=== PATIENT | male | born 1980 | race Caucasian/White ===

== ENCOUNTER 2022-03-31 19:41 | Inpatient (IN) | payer MEDICAID ==
[~2022-03-31] VITALS: Ht 172.7 cm; Wt 124.4 kg
[~2022-03-31 19:41] MED LIST: ASPI-1497 PO; ATOR10TA69 PO; ETOMIDATE 2MG/ML 10ML VIAL IV ONE; LISI-186 PO; SODIUM CHLORIDE 0.9% 10ML VIAL ONE; VECURONIUM BROMIDE 10 MG/VIAL IV ONE
[2022-03-31] MEDS ORDERED: SUCCINYLCHOLINE CHLORIDE 200MG/10ML IV ONE (20:00)
[2022-03-31] MEDS ORDERED: MIDAZOLAM HCL 100 MG in DEXT 5% WATER 80 ML IV ONE (20:00)
[2022-03-31] MEDS ORDERED: MIDAZOLAM 100MG/100ML PMX 100 ML IV ONE (20:00)
[2022-03-31] MEDS ORDERED: ETOMIDATE 2MG/ML 10ML VIAL IV ONE (20:00)
[2022-03-31] MEDS ORDERED: VECURONIUM BROMIDE 10 MG/VIAL IV ONE (20:00)
[2022-03-31] MEDS ORDERED: SODIUM CHLORIDE 0.9% 1,000 ML IV ONE (20:00)
[2022-03-31] MEDS ORDERED: ETOMIDATE 2MG/ML 10ML VIAL IV NR (20:15)
[2022-03-31] MEDS ORDERED: MIDAZOLAM 100MG/100ML PMX 100 ML IV SCH (20:15)
[2022-03-31] MEDS ORDERED: VECURONIUM BROMIDE 10 MG/VIAL IV NR (20:15)
[2022-03-31] MEDS ORDERED: SUCCINYLCHOLINE CHLORIDE 200MG/10ML IV NR (20:15)
[2022-03-31 20:33] LABS: BASOPHILS % 0.3 % (0.0-2.0); EOSINOPHILS % 0.1 % (0.0-5.0); HEMATOCRIT. 40.8 % (42.0-52.0); HEMOGLOBIN. 12.6 g/dL (14.0-18.0); LYMPHOCYTES % 14.8 % (20.0-50.0); MEAN CORPUSCULAR HEMOGLOBIN 24.9 pg (28.0-32.0); MEAN CORPUSCULAR VOLUME 80.8 fL (80.0-94.0); MEAN PLATELET VOLUME 8.1 fl (7.4-10.4); MONOCYTES % 8.3 % (2.0-8.0); NEUTROPHILS % 76.5 % (40.0-76.0); PLATELET 358 x1000/uL (130-400); RED BLOOD CELL COUNT 5.05 mill/uL (4.7-6.1); RED CELL DISTRIBUTION WIDTH 15.6 % (11.6-14.6)
[2022-03-31 20:36] LABS: INR 1.2; PROTHROMBIN TIME 12.4 sec (9.6-11.0)
[2022-03-31] MEDS ORDERED: NICARDIPINE 40MG/200ML PREMIX 200 ML IV STA (20:42)
[2022-03-31] MEDS ORDERED: LABETALOL 5MG/ML SYR 20 MG/4 ML SYRINGE IV ONE (20:45)
[2022-03-31 20:49] LABS: BG BASE EXCESS -2.2 mmol/L (-2.0-2.0); BG CARBOXYHEMOGLOBIN 0.5 % (0.5-1.5); BG DEOXYHEMOGLOBIN 2.4 % (0.0-5.0); BG FRACTION INSPIRED OXYGEN 100; BG METHEMOGLOBIN 0.4 % (0.0-1.5); BG OXYGEN SATURATION 97.6 % (92.0-98.5); BG OXYHEMOGLOBIN 96.7 % (94.0-97.0); BG PCO2 68.6 mmHg (35.0-45.0); BG PH 7.213 (7.350-7.450); BG PO2 117.1 mmHg (75.0-100.0); BG TOTAL RESPIRATORY RATE 14 b/min; BG VENT MODE VENT - AC
[2022-03-31 20:51] LABS: CHLORIDE 97 mEq/L (98-107)
[2022-03-31 21:02] LABS: CREATINE KINASE 313 IU/L (39-308); ETHANOL BLOOD < 10 mg/dL; LDL CHOLESTEROL 119 mg/dL (5-100)
[2022-03-31 21:12] LABS: CLARITY URINE TURBID (CLEAR); COLOR URINE YELLOW (YELLOW); KETONES URINE NEGATIVE (NEGATIVE); LEUKOCYTE ESTERASE URINE NEGATIVE (NEGATIVE); NITRITE URINE NEGATIVE (NEGATIVE); OCCULT BLOOD URINE 2+ (NEGATIVE); PH URINE 6.5 (4.5-8.0); PROTEIN URINE 4+ (NEGATIVE); SPECIFIC GRAVITY URINE 1.042 (1.005-1.030)
[2022-03-31 21:30] LABS: *AMPHETAMINES SCREEN URINE NEGATIVE (NEGATIVE); *BARBITURATES SCREEN URINE NEGATIVE (NEGATIVE); *BENZODIAZEPINES SCREEN URINE NEGATIVE (NEGATIVE); *COCAINE SCREEN URINE NEGATIVE (NEGATIVE); CANNABINOID URINE SCREEN NEGATIVE (NEGATIVE); METHADONE URINE SCREEN NEGATIVE (NEGATIVE); OPIATES URINE SCREEN NEGATIVE (NEGATIVE); PHENCYCLIDINE URINE SCREEN NEGATIVE (NEGATIVE)
[2022-03-31] MEDS ORDERED: IPRATROPIUM/ALBUTEROL 0.5-3(2.5)MG/3ML NEB HHN PRN ×2 (22:15→23:45)
[2022-03-31] MEDS ORDERED: MIDAZOLAM 100MG/100ML PMX 100 ML IV PRN (22:15)
[2022-03-31] MEDS ORDERED: PIPERACILLIN/TAZ 3.375G PREMIX 50 ML IV ONE (22:30)
[2022-03-31] MEDS ORDERED: LEVOFLOXACIN 500MG PREMIX 100 ML IV ONE (22:30)
[2022-03-31] MEDS ORDERED: MORPHINE SULFATE 10 MG/ML CPJ IV ONE (22:45)
[2022-03-31 22:46] LABS: BG CARBOXYHEMOGLOBIN 0.4 % (0.5-1.5); BG DEOXYHEMOGLOBIN 5.2 % (0.0-5.0); BG HCO3 ACT 28.4 mmol/L (22.0-26.0); BG METHEMOGLOBIN 0.3 % (0.0-1.5); BG OXYGEN SATURATION 94.8 % (92.0-98.5); BG OXYHEMOGLOBIN 94.1 % (94.0-97.0); BG PCO2 52.3 mmHg (35.0-45.0); BG PH 7.353 (7.350-7.450); BG PO2 78.3 mmHg (75.0-100.0); BG SAMPLE SITE RIGHT RADIAL; BG TOTAL HEMOGLOBIN 12.8 g/dL (12.0-18.0); BG TOTAL RESPIRATORY RATE 22 b/min; BG VENT MODE VENT - AC
[2022-03-31] MEDS: FENTANYL 2500MCG/250ML PMX 250 ML IV PRN (22:50)
[2022-03-31] MEDS ORDERED: ONDANSETRON HCL 4MG/2ML INJ IV PRN (23:45)
[2022-04-01] VITALS (31 sets, daily range): BP systolic 137–178; BP diastolic 58–135
[2022-04-01] MEDS: PANTOPRAZOLE SODIUM 40 MG/VIAL IV SCH ×2 (01:02→09:00)
[2022-04-01] MEDS: IPRATROPIUM/ALBUTEROL 0.5-3(2.5)MG/3ML NEB HHN SCH ×4 (01:09→20:37)
[2022-04-01] MEDS ORDERED: DEXTROSE 50% WATER 50ML SYRINGE IV PRN (04:30)
[2022-04-01] MEDS: HYDRALAZINE 20MG/ML VIAL IV PRN (04:54)
[2022-04-01] MEDS: BLOOD SUGAR DIAGNOSTIC STRIP TEST SCH ×3 (05:07→17:52)
[2022-04-01] MEDS: INSULIN LISPRO 100 UNITS/ML SUBCUT SCH ×3 (05:07→17:52)
[2022-04-01 06:00] LABS: BASOPHILS % 0.1 % (0.0-2.0); EOSINOPHILS % 0.2 % (0.0-5.0); HEMATOCRIT. 36.6 % (42.0-52.0); HEMOGLOBIN. 11.6 g/dL (14.0-18.0); LYMPHOCYTES % 10.4 % (20.0-50.0); MEAN CORPUSCULAR HEMOGLOBIN 24.8 pg (28.0-32.0); MEAN CORPUSCULAR VOLUME 78.4 fL (80.0-94.0); MEAN PLATELET VOLUME 7.9 fl (7.4-10.4); NEUTROPHILS % 78.3 % (40.0-76.0); PLATELET 311 x1000/uL (130-400); RED BLOOD CELL COUNT 4.67 mill/uL (4.7-6.1); RED CELL DISTRIBUTION WIDTH 15.1 % (11.6-14.6)
[2022-04-01] MEDS: MIDAZOLAM 100MG/100ML PMX 100 ML IV PRN (06:07)
[2022-04-01 06:11] LABS: CHLORIDE 100 mEq/L (98-107)
[2022-04-01 06:29] LABS: CREATINE KINASE 297 IU/L (39-308); HDL CHOLESTEROL 37 mg/dL (40-59); LDL CHOLESTEROL 105 mg/dL (5-100)
[2022-04-01] MEDS ORDERED: INSULIN LISPRO 100 UNITS/ML SUBCUT SCH (07:00)
[2022-04-01] MEDS ORDERED: LIDOCAINE HCL/PF 1% 10 MG/ML 5ML VIAL ONE (08:06)
[2022-04-01] MEDS ORDERED: FUROSEMIDE 40MG/4ML VIAL IV SCH (09:00)
[2022-04-01 09:02] LABS: BG BASE EXCESS 3.2 mmol/L (-2.0-2.0); BG CARBOXYHEMOGLOBIN 0.7 % (0.5-1.5); BG DEOXYHEMOGLOBIN 0.8 % (0.0-5.0); BG FRACTION INSPIRED OXYGEN 100; BG HCO3 ACT 29.1 mmol/L (22.0-26.0); BG METHEMOGLOBIN 0.3 % (0.0-1.5); BG OXYGEN SATURATION 99.2 % (92.0-98.5); BG OXYHEMOGLOBIN 98.2 % (94.0-97.0); BG PCO2 49.6 mmHg (35.0-45.0); BG PH 7.386 (7.350-7.450); BG PO2 157.4 mmHg (75.0-100.0); BG SAMPLE SITE RIGHT RADIAL; BG TOTAL HEMOGLOBIN 12.4 g/dL (12.0-18.0); BG VENT MODE VENT - AC
[2022-04-01] MEDS ORDERED: POTASSIUM CHLORIDE 20MEQ TABLET SR PO NR (10:21)
[2022-04-01] MEDS: ENOXAPARIN 120MG/0.8ML SYR SUBCUT SCH ×2 (10:28→21:25)
[2022-04-01] MEDS: ASPIRIN 81MG TABLET PO SCH (10:30)
[2022-04-01] MEDS: AMLODIPINE 5MG TABLET PO SCH (10:45)
[2022-04-01] MEDS ORDERED: LOSARTAN POTASSIUM 25 MG TABLET PO SCH (11:30)
[2022-04-01] MEDS: FUROSEMIDE 40MG/4ML VIAL IV SCH ×2 (13:00→17:52)
[2022-04-01 17:57] LABS: CREATINE KINASE MB FRACTION 11.1 ng/mL (0.5-3.6)
[2022-04-01] MEDS: FENTANYL 2500MCG/250ML PMX 250 ML IV PRN (21:16)
[2022-04-01] MEDS: CARVEDILOL 3.125 MG TABLET PO SCH (21:25)
[2022-04-02] VITALS (53 sets, daily range): BP systolic 126–175; BP diastolic 76–110
[2022-04-02] MEDS: BLOOD SUGAR DIAGNOSTIC STRIP TEST SCH ×4 (00:12→17:37)
[2022-04-02] MEDS: IPRATROPIUM/ALBUTEROL 0.5-3(2.5)MG/3ML NEB HHN SCH ×4 (01:56→20:59)
[2022-04-02 05:50] LABS: HEMOGLOBIN. 11.4 g/dL (14.0-18.0); MEAN CORPUSCULAR HEMOGLOBIN 24.6 pg (28.0-32.0); MEAN CORPUSCULAR VOLUME 77.9 fL (80.0-94.0); MEAN PLATELET VOLUME 8.1 fl (7.4-10.4); PLATELET 285 x1000/uL (130-400); RED BLOOD CELL COUNT 4.61 mill/uL (4.7-6.1); RED CELL DISTRIBUTION WIDTH 15.5 % (11.6-14.6)
[2022-04-02] MEDS: INSULIN LISPRO 100 UNITS/ML SUBCUT SCH ×4 (06:00→17:37)
[2022-04-02 07:48] LABS: BG CARBOXYHEMOGLOBIN 0.3 % (0.5-1.5); BG HCO3 ACT 28.7 mmol/L (22.0-26.0); BG OXYHEMOGLOBIN 92.7 % (94.0-97.0); BG PCO2 43.4 mmHg (35.0-45.0); BG PH 7.438 (7.350-7.450); BG PO2 67.6 mmHg (75.0-100.0); BG SAMPLE SITE RIGHT RADIAL; BG TOTAL HEMOGLOBIN 12.6 g/dL (12.0-18.0); BG VENT MODE VENT - AC
[2022-04-02] MEDS: ASPIRIN 81MG TABLET PO SCH (08:57)
[2022-04-02] MEDS: ACETAMINOPHEN 650MG/20.3ML UDC PO PRN (08:57)
[2022-04-02] MEDS: CARVEDILOL 3.125 MG TABLET PO SCH ×2 (08:57→21:29)
[2022-04-02] MEDS: ENOXAPARIN 120MG/0.8ML SYR SUBCUT SCH ×2 (08:57→21:29)
[2022-04-02] MEDS: FUROSEMIDE 40MG/4ML VIAL IV SCH ×3 (08:57→17:37)
[2022-04-02] MEDS: PANTOPRAZOLE SODIUM 40 MG/VIAL IV SCH (08:57)
[2022-04-02] MEDS: AMLODIPINE 5MG TABLET PO SCH (08:58)
[2022-04-02] MEDS ORDERED: NICARDIPINE 50 MG in SODIUM CHLORIDE 0.9% 230 ML IV PRN (09:15)
[2022-04-02] MEDS ORDERED: POTASSIUM CHLORIDE 20MEQ/PACKET PO NR (09:30)
[2022-04-02] MEDS ORDERED: VANCOMYCIN 2,000 MG in DEXT 5% WATER 500 ML IV NR (10:30)
[2022-04-02 12:48] LABS: PLATELET ESTIMATE NORMAL
[2022-04-02] MEDS: PIPERACILLIN/TAZOBACTAM 3.375 G in DEXTROSE 5% WATER 50 ML IV SCH ×3 (13:07→21:57)
[2022-04-02] MEDS: HYDRALAZINE HCL 25MG TABLET PO SCH ×2 (13:14→21:57)
[2022-04-02] MEDS: MIDAZOLAM 100MG/100ML PMX 100 ML IV PRN (15:36)
[2022-04-02] MEDS: FENTANYL 2500MCG/250ML PMX 250 ML IV PRN (22:04)
[2022-04-03] VITALS (79 sets, daily range): BP systolic 127–181; BP diastolic 64–111
[2022-04-03] MEDS: IPRATROPIUM/ALBUTEROL 0.5-3(2.5)MG/3ML NEB HHN SCH ×3 (00:43→12:35)
[2022-04-03 05:42] LABS: BASOPHILS % 0.3 % (0.0-2.0); EOSINOPHILS % 0.5 % (0.0-5.0); HEMATOCRIT. 36.8 % (42.0-52.0); HEMOGLOBIN. 11.6 g/dL (14.0-18.0); LYMPHOCYTES % 8.9 % (20.0-50.0); MEAN CORPUSCULAR HEMOGLOBIN 24.9 pg (28.0-32.0); MEAN CORPUSCULAR VOLUME 79.2 fL (80.0-94.0); MEAN PLATELET VOLUME 8.2 fl (7.4-10.4); MONOCYTES % 10.2 % (2.0-8.0); NEUTROPHILS % 80.1 % (40.0-76.0); PLATELET 276 x1000/uL (130-400); RED BLOOD CELL COUNT 4.65 mill/uL (4.7-6.1); RED CELL DISTRIBUTION WIDTH 15.5 % (11.6-14.6)
[2022-04-03] MEDS: INSULIN LISPRO 100 UNITS/ML SUBCUT SCH ×4 (06:00→18:00)
[2022-04-03] MEDS: BLOOD SUGAR DIAGNOSTIC STRIP TEST SCH ×4 (06:13→18:35)
[2022-04-03] MEDS: PIPERACILLIN/TAZOBACTAM 3.375 G in DEXTROSE 5% WATER 50 ML IV SCH ×3 (06:14→21:39)
[2022-04-03] MEDS: HYDRALAZINE HCL 25MG TABLET PO SCH ×3 (06:14→21:40)
[2022-04-03] MEDS: VANCOMYCIN 1.25GM PMX (XELLIA) 250 ML IV SCH (06:14)
[2022-04-03 06:15] LABS: PHOSPHORUS 3.6 mg/dL (2.5-4.9)
[2022-04-03 08:00] LABS: BG FRACTION INSPIRED OXYGEN 50; BG HCO3 ACT 35.1 mmol/L (22.0-26.0); BG METHEMOGLOBIN 0.3 % (0.0-1.5); BG OXYGEN SATURATION 94.9 % (92.0-98.5); BG OXYHEMOGLOBIN 93.7 % (94.0-97.0); BG PCO2 49.3 mmHg (35.0-45.0); BG PO2 70.3 mmHg (75.0-100.0); BG SAMPLE SITE RIGHT RADIAL; BG TOTAL HEMOGLOBIN 12.5 g/dL (12.0-18.0); BG VENT MODE VENT - AC
[2022-04-03] MEDS: FUROSEMIDE 40MG/4ML VIAL IV SCH ×3 (08:14→16:29)
[2022-04-03] MEDS: PANTOPRAZOLE SODIUM 40 MG/VIAL IV SCH (08:15)
[2022-04-03] MEDS: ACETAMINOPHEN 650MG/20.3ML UDC PO PRN ×2 (08:15→16:28)
[2022-04-03] MEDS: POTASSIUM CHLORIDE 20MEQ/PACKET PO SCH (08:16)
[2022-04-03] MEDS: HYDRALAZINE 20MG/ML VIAL IV PRN (08:16)
[2022-04-03] MEDS: ASPIRIN 81MG TABLET PO SCH (08:16)
[2022-04-03] MEDS: CARVEDILOL 3.125 MG TABLET PO SCH (08:17)
[2022-04-03] MEDS: AMLODIPINE 5MG TABLET PO SCH ×2 (08:17→20:52)
[2022-04-03] MEDS: ENOXAPARIN 120MG/0.8ML SYR SUBCUT SCH ×2 (08:19→20:53)
[2022-04-03] MEDS: DOXAZOSIN MESYLATE 2MG TABLET PO SCH ×2 (09:10→16:29)
[2022-04-03] MEDS: DOCUSATE SODIUM SUGAR FREE 100MG/10ML UDC NG SCH (09:10)
[2022-04-03] MEDS: MIDAZOLAM 100MG/100ML PMX 100 ML IV PRN (18:36)
[2022-04-03] MEDS: CARVEDILOL 6.25 MG TABLET PO SCH (20:52)
[2022-04-03] MEDS: FENTANYL 2500MCG/250ML PMX 250 ML IV PRN (21:55)
[2022-04-04] VITALS (84 sets, daily range): BP systolic 100–181; BP diastolic 57–105
[2022-04-04] MEDS: BLOOD SUGAR DIAGNOSTIC STRIP TEST SCH ×5 (00:42→23:55)
[2022-04-04] MEDS: VANCOMYCIN 1.25GM PMX (XELLIA) 250 ML IV SCH (00:42)
[2022-04-04] MEDS: ACETAMINOPHEN 650MG/20.3ML UDC PO PRN ×2 (00:42→08:25)
[2022-04-04] MEDS: IPRATROPIUM/ALBUTEROL 0.5-3(2.5)MG/3ML NEB HHN SCH ×4 (00:48→20:22)
[2022-04-04 05:46] LABS: BASOPHILS % 0.2 % (0.0-2.0); EOSINOPHILS % 0.3 % (0.0-5.0); HEMATOCRIT. 36.3 % (42.0-52.0); HEMOGLOBIN. 11.5 g/dL (14.0-18.0); LYMPHOCYTES % 10.1 % (20.0-50.0); MEAN CORPUSCULAR HEMOGLOBIN 24.7 pg (28.0-32.0); MEAN CORPUSCULAR VOLUME 77.9 fL (80.0-94.0); MEAN PLATELET VOLUME 8.3 fl (7.4-10.4); MONOCYTES % 13.4 % (2.0-8.0); PLATELET 295 x1000/uL (130-400); RED BLOOD CELL COUNT 4.66 mill/uL (4.7-6.1); RED CELL DISTRIBUTION WIDTH 15.9 % (11.6-14.6)
[2022-04-04] MEDS: INSULIN LISPRO 100 UNITS/ML SUBCUT SCH ×5 (06:00→23:56)
[2022-04-04 06:09] LABS: PHOSPHORUS 3.2 mg/dL (2.5-4.9)
[2022-04-04] MEDS: HYDRALAZINE HCL 25MG TABLET PO SCH ×2 (06:51→13:36)
[2022-04-04] MEDS: PIPERACILLIN/TAZOBACTAM 3.375 G in DEXTROSE 5% WATER 50 ML IV SCH ×3 (06:51→21:34)
[2022-04-04 08:05] LABS: BG BASE EXCESS 7.7 mmol/L (-2.0-2.0); BG CARBOXYHEMOGLOBIN 1.6 % (0.5-1.5); BG DEOXYHEMOGLOBIN 3.9 % (0.0-5.0); BG HCO3 ACT 32.4 mmol/L (22.0-26.0); BG METHEMOGLOBIN 0.5 % (0.0-1.5); BG PCO2 45.8 mmHg (35.0-45.0); BG PH 7.468 (7.350-7.450); BG PO2 81.6 mmHg (75.0-100.0); BG SAMPLE SITE RIGHT RADIAL; BG VENT MODE VENT - AC
[2022-04-04] MEDS: PANTOPRAZOLE SODIUM 40 MG/VIAL IV SCH (08:26)
[2022-04-04] MEDS: DOCUSATE SODIUM SUGAR FREE 100MG/10ML UDC NG SCH (08:26)
[2022-04-04] MEDS: ENOXAPARIN 120MG/0.8ML SYR SUBCUT SCH (08:26)
[2022-04-04] MEDS: POTASSIUM CHLORIDE 20MEQ/PACKET PO SCH (08:26)
[2022-04-04] MEDS: ASPIRIN 81MG TABLET PO SCH (08:27)
[2022-04-04] MEDS: FUROSEMIDE 40MG/4ML VIAL IV SCH (08:27)
[2022-04-04] MEDS: AMLODIPINE 5MG TABLET PO SCH ×2 (08:27→21:43)
[2022-04-04] MEDS: HYDRALAZINE 20MG/ML VIAL IV PRN (08:27)
[2022-04-04] MEDS: CARVEDILOL 6.25 MG TABLET PO SCH ×2 (08:28→21:00)
[2022-04-04] MEDS: DOXAZOSIN MESYLATE 2MG TABLET PO SCH ×2 (08:28→18:18)
[2022-04-04] MEDS ORDERED: ENOXAPARIN 30MG/0.3ML SYR SUBCUT SCH (10:30)
[2022-04-04] MEDS ORDERED: KCL 20MEQ/100ML PREMIX 100 ML IV NR (11:00)
[2022-04-04] MEDS: MIDAZOLAM HCL 100 MG in SODIUM CHLORIDE 0.9% 100 ML IV PRN (18:21)
[2022-04-04] MEDS: FENTANYL 2500MCG/250ML PMX 250 ML IV PRN (20:45)
[2022-04-04] MEDS: HYDRALAZINE HCL 50MG TABLET PO SCH (21:33)
[2022-04-04] MEDS: ENOXAPARIN 30MG/0.3ML SYR SUBCUT SCH (21:35)
[2022-04-05] VITALS (93 sets, daily range): BP systolic 110–156; BP diastolic 62–99
[2022-04-05] MEDS: IPRATROPIUM/ALBUTEROL 0.5-3(2.5)MG/3ML NEB HHN SCH ×4 (01:49→20:41)
[2022-04-05 05:34] LABS: BASOPHILS % 0.2 % (0.0-2.0); EOSINOPHILS % 4.2 % (0.0-5.0); HEMATOCRIT. 36.3 % (42.0-52.0); HEMOGLOBIN. 11.4 g/dL (14.0-18.0); LYMPHOCYTES % 13.7 % (20.0-50.0); MEAN CORPUSCULAR HEMOGLOBIN 24.8 pg (28.0-32.0); MEAN CORPUSCULAR VOLUME 78.7 fL (80.0-94.0); MEAN PLATELET VOLUME 8.3 fl (7.4-10.4); MONOCYTES % 9.6 % (2.0-8.0); NEUTROPHILS % 72.3 % (40.0-76.0); PLATELET 286 x1000/uL (130-400); RED BLOOD CELL COUNT 4.61 mill/uL (4.7-6.1); RED CELL DISTRIBUTION WIDTH 15.4 % (11.6-14.6)
[2022-04-05] MEDS: INSULIN LISPRO 100 UNITS/ML SUBCUT SCH ×3 (06:00→18:00)
[2022-04-05] MEDS: BLOOD SUGAR DIAGNOSTIC STRIP TEST SCH ×3 (06:00→18:31)
[2022-04-05] MEDS: PIPERACILLIN/TAZOBACTAM 3.375 G in DEXTROSE 5% WATER 50 ML IV SCH ×3 (06:02→21:47)
[2022-04-05] MEDS: HYDRALAZINE HCL 50MG TABLET PO SCH ×3 (06:02→22:19)
[2022-04-05 08:30] LABS: BG BASE EXCESS 6.4 mmol/L (-2.0-2.0); BG CARBOXYHEMOGLOBIN 0.5 % (0.5-1.5); BG HCO3 ACT 30.9 mmol/L (22.0-26.0); BG METHEMOGLOBIN 0.3 % (0.0-1.5); BG OXYHEMOGLOBIN 93.2 % (94.0-97.0); BG PCO2 43.8 mmHg (35.0-45.0); BG PH 7.467 (7.350-7.450); BG PO2 66.7 mmHg (75.0-100.0); BG SAMPLE SITE RIGHT RADIAL; BG VENT MODE VENT - AC
[2022-04-05] MEDS: PANTOPRAZOLE SODIUM 40 MG/VIAL IV SCH (08:35)
[2022-04-05] MEDS: DOCUSATE SODIUM SUGAR FREE 100MG/10ML UDC NG SCH (08:36)
[2022-04-05] MEDS: AMLODIPINE 5MG TABLET PO SCH ×2 (08:36→21:44)
[2022-04-05] MEDS: ASPIRIN 81MG TABLET PO SCH (08:36)
[2022-04-05] MEDS: DOXAZOSIN MESYLATE 2MG TABLET PO SCH ×2 (08:37→18:31)
[2022-04-05] MEDS: CARVEDILOL 6.25 MG TABLET PO SCH ×2 (08:37→21:45)
[2022-04-05] MEDS: ENOXAPARIN 30MG/0.3ML SYR SUBCUT SCH ×2 (08:38→21:45)
[2022-04-05] MEDS: ACETAMINOPHEN 650MG/20.3ML UDC PO PRN ×3 (08:47→23:53)
[2022-04-05] MEDS ORDERED: FUROSEMIDE 40MG/4ML VIAL IV SCH (09:00)
[2022-04-05] MEDS: MIDAZOLAM HCL 100 MG in SODIUM CHLORIDE 0.9% 100 ML IV PRN (11:45)
[2022-04-05] MEDS ORDERED: VANCOMYCIN 1.25GM PMX (XELLIA) 250 ML IV SCH (12:00)
[2022-04-05] MEDS ORDERED: POTASSIUM CHLORIDE 20MEQ/PACKET NG SCH (12:00)
[2022-04-05] MEDS: FENTANYL 2500MCG/250ML PMX 250 ML IV PRN (18:32)
[2022-04-06] VITALS (92 sets, daily range): BP systolic 111–166; BP diastolic 55–103
[2022-04-06] MEDS: BLOOD SUGAR DIAGNOSTIC STRIP TEST SCH ×4 (00:53→17:10)
[2022-04-06] MEDS: IPRATROPIUM/ALBUTEROL 0.5-3(2.5)MG/3ML NEB HHN SCH ×4 (01:44→20:13)
[2022-04-06] MEDS ORDERED: FENTANYL CITRATE/PF 2,500 MCG in SODIUM CHLORIDE 0.9% 200 ML IV PRN (03:45)
[2022-04-06] MEDS: MIDAZOLAM HCL 100 MG in SODIUM CHLORIDE 0.9% 100 ML IV PRN ×3 (04:15→22:56)
[2022-04-06] MEDS: FENTANYL 2500MCG/250ML PMX 250 ML IV PRN ×2 (04:42→23:00)
[2022-04-06] MEDS: PIPERACILLIN/TAZOBACTAM 3.375 G in DEXTROSE 5% WATER 50 ML IV SCH ×3 (05:30→21:58)
[2022-04-06] MEDS: HYDRALAZINE HCL 50MG TABLET PO SCH ×3 (05:50→21:58)
[2022-04-06 05:52] LABS: BASOPHILS % 0.3 % (0.0-2.0); EOSINOPHILS % 7.2 % (0.0-5.0); HEMATOCRIT. 36.4 % (42.0-52.0); HEMOGLOBIN. 11.2 g/dL (14.0-18.0); LYMPHOCYTES % 13.3 % (20.0-50.0); MEAN CORPUSCULAR HEMOGLOBIN 24.6 pg (28.0-32.0); MEAN PLATELET VOLUME 8.7 fl (7.4-10.4); MONOCYTES % 6.2 % (2.0-8.0); PLATELET 269 x1000/uL (130-400); RED BLOOD CELL COUNT 4.55 mill/uL (4.7-6.1); RED CELL DISTRIBUTION WIDTH 15.9 % (11.6-14.6)
[2022-04-06] MEDS ORDERED: VANCOMYCIN 1G PREMIX 200 ML IV SCH ×2 (06:00→12:00)
[2022-04-06] MEDS: INSULIN LISPRO 100 UNITS/ML SUBCUT SCH ×4 (06:00→17:11)
[2022-04-06] MEDS ORDERED: POTASSIUM CHLORIDE 20MEQ TABLET SR PO NR (08:00)
[2022-04-06] MEDS: DOCUSATE SODIUM SUGAR FREE 100MG/10ML UDC NG SCH (08:17)
[2022-04-06] MEDS: PANTOPRAZOLE SODIUM 40 MG/VIAL IV SCH (08:17)
[2022-04-06] MEDS: DOXAZOSIN MESYLATE 2MG TABLET PO SCH ×2 (08:18→16:30)
[2022-04-06] MEDS: ASPIRIN 81MG TABLET PO SCH (08:18)
[2022-04-06] MEDS: AMLODIPINE 5MG TABLET PO SCH ×2 (08:18→21:57)
[2022-04-06] MEDS: CARVEDILOL 6.25 MG TABLET PO SCH ×2 (08:18→21:57)
[2022-04-06] MEDS: ENOXAPARIN 30MG/0.3ML SYR SUBCUT SCH ×2 (08:18→21:58)
[2022-04-06] MEDS: ACETAMINOPHEN 650MG/20.3ML UDC PO PRN ×2 (08:20→17:11)
[2022-04-06 08:59] LABS: BG BASE EXCESS 8.1 mmol/L (-2.0-2.0); BG CARBOXYHEMOGLOBIN 0.7 % (0.5-1.5); BG DEOXYHEMOGLOBIN 5.8 % (0.0-5.0); BG FRACTION INSPIRED OXYGEN 40; BG HCO3 ACT 32.9 mmol/L (22.0-26.0); BG METHEMOGLOBIN 0.2 % (0.0-1.5); BG OXYGEN SATURATION 94.1 % (92.0-98.5); BG OXYHEMOGLOBIN 93.3 % (94.0-97.0); BG PCO2 46.3 mmHg (35.0-45.0); BG PH 7.469 (7.350-7.450); BG PO2 69.2 mmHg (75.0-100.0); BG SAMPLE SITE RIGHT RADIAL; BG TOTAL HEMOGLOBIN 12.4 g/dL (12.0-18.0); BG VENT MODE VENT - AC
[2022-04-06] MEDS ORDERED: LORAZEPAM 2MG/ML CPJ IV PRN (10:15)
[2022-04-06 10:21] LABS: BG BASE EXCESS 4.9 mmol/L (-2.0-2.0); BG CARBOXYHEMOGLOBIN 0.8 % (0.5-1.5); BG DEOXYHEMOGLOBIN 3.1 % (0.0-5.0); BG FRACTION INSPIRED OXYGEN 40; BG HCO3 ACT 30.9 mmol/L (22.0-26.0); BG METHEMOGLOBIN 0.3 % (0.0-1.5); BG OXYGEN SATURATION 96.9 % (92.0-98.5); BG OXYHEMOGLOBIN 95.8 % (94.0-97.0); BG PCO2 51.7 mmHg (35.0-45.0); BG PH 7.394 (7.350-7.450); BG PO2 93.5 mmHg (75.0-100.0); BG SAMPLE SITE RIGHT RADIAL; BG TOTAL HEMOGLOBIN 12.4 g/dL (12.0-18.0); BG VENT MODE VENT - CPAP
[2022-04-06] MEDS ORDERED: VANCOMYCIN 1GM PMX (XELLIA) 200 ML IV SCH (12:00)
[2022-04-06 20:33] LABS: CREATINE KINASE 430 IU/L (39-308)
[2022-04-07] VITALS (66 sets, daily range): BP systolic 109–138; BP diastolic 56–90
[2022-04-07] MEDS: IPRATROPIUM/ALBUTEROL 0.5-3(2.5)MG/3ML NEB HHN SCH ×4 (02:04→20:25)
[2022-04-07 05:46] LABS: BASOPHILS % 0.2 % (0.0-2.0); EOSINOPHILS % 7.4 % (0.0-5.0); HEMATOCRIT. 34.7 % (42.0-52.0); HEMOGLOBIN. 10.8 g/dL (14.0-18.0); LYMPHOCYTES % 13.6 % (20.0-50.0); MEAN CORPUSCULAR VOLUME 80.2 fL (80.0-94.0); MEAN PLATELET VOLUME 8.8 fl (7.4-10.4); MONOCYTES % 8.4 % (2.0-8.0); NEUTROPHILS % 70.4 % (40.0-76.0); PLATELET 268 x1000/uL (130-400); RED BLOOD CELL COUNT 4.33 mill/uL (4.7-6.1)
[2022-04-07] MEDS: INSULIN LISPRO 100 UNITS/ML SUBCUT SCH ×4 (06:00→17:04)
[2022-04-07 06:02] LABS: CHLORIDE 116 mEq/L (98-107)
[2022-04-07] MEDS: BLOOD SUGAR DIAGNOSTIC STRIP TEST SCH ×4 (06:19→17:03)
[2022-04-07] MEDS: HYDRALAZINE HCL 50MG TABLET PO SCH ×3 (06:20→21:31)
[2022-04-07] MEDS: ACETAMINOPHEN 650MG/20.3ML UDC PO PRN (06:20)
[2022-04-07] MEDS: MIDAZOLAM HCL 100 MG in SODIUM CHLORIDE 0.9% 100 ML IV PRN (07:35)
[2022-04-07 07:46] LABS: BG BASE EXCESS 3.9 mmol/L (-2.0-2.0); BG CARBOXYHEMOGLOBIN 0.7 % (0.5-1.5); BG DEOXYHEMOGLOBIN 5.5 % (0.0-5.0); BG HCO3 ACT 29.7 mmol/L (22.0-26.0); BG METHEMOGLOBIN 0.2 % (0.0-1.5); BG OXYGEN SATURATION 94.5 % (92.0-98.5); BG OXYHEMOGLOBIN 93.6 % (94.0-97.0); BG PCO2 50.2 mmHg (35.0-45.0); BG SAMPLE SITE RIGHT RADIAL; BG TOTAL HEMOGLOBIN 12.1 g/dL (12.0-18.0); BG VENT MODE VENT - SIMV
[2022-04-07] MEDS: DOCUSATE SODIUM SUGAR FREE 100MG/10ML UDC NG SCH (09:00)
[2022-04-07] MEDS: ENOXAPARIN 30MG/0.3ML SYR SUBCUT SCH ×2 (09:06→21:33)
[2022-04-07] MEDS: AMLODIPINE 5MG TABLET PO SCH ×2 (09:06→21:31)
[2022-04-07] MEDS: PANTOPRAZOLE SODIUM 40 MG/VIAL IV SCH (09:06)
[2022-04-07] MEDS: CARVEDILOL 6.25 MG TABLET PO SCH ×2 (09:07→21:32)
[2022-04-07] MEDS: ASPIRIN 81MG TABLET PO SCH (09:07)
[2022-04-07] MEDS: DOXAZOSIN MESYLATE 2MG TABLET PO SCH ×2 (09:07→16:53)
[2022-04-07 11:28] LABS: BG BASE EXCESS 6.5 mmol/L (-2.0-2.0); BG FRACTION INSPIRED OXYGEN 40; BG HCO3 ACT 32.7 mmol/L (22.0-26.0); BG METHEMOGLOBIN 0.2 % (0.0-1.5); BG OXYGEN SATURATION 93.9 % (92.0-98.5); BG OXYHEMOGLOBIN 92.8 % (94.0-97.0); BG PCO2 53.7 mmHg (35.0-45.0); BG PH 7.402 (7.350-7.450); BG PO2 70.3 mmHg (75.0-100.0); BG SAMPLE SITE RIGHT RADIAL; BG TOTAL HEMOGLOBIN 12.9 g/dL (12.0-18.0); BG VENT MODE VENT - CPAP
[2022-04-07] MEDS: MEROPENEM 1,000 MG in SODIUM CHLORIDE 0.9% 100 ML IV SCH (22:08)
[2022-04-08] VITALS (54 sets, daily range): BP systolic 109–163; BP diastolic 52–97
[2022-04-08] MEDS: IPRATROPIUM/ALBUTEROL 0.5-3(2.5)MG/3ML NEB HHN SCH ×4 (00:23→20:08)
[2022-04-08] MEDS: FENTANYL 2500MCG/250ML PMX 250 ML IV PRN (02:36)
[2022-04-08] MEDS: MIDAZOLAM 100MG/100ML PREMIX IV PRN ×3 (02:41→15:57)
[2022-04-08] MEDS: MEROPENEM 1,000 MG in SODIUM CHLORIDE 0.9% 100 ML IV SCH ×3 (05:01→21:14)
[2022-04-08] MEDS: HYDRALAZINE HCL 50MG TABLET PO SCH ×3 (05:02→21:14)
[2022-04-08] MEDS: INSULIN LISPRO 100 UNITS/ML SUBCUT SCH ×4 (05:29→18:00)
[2022-04-08] MEDS: BLOOD SUGAR DIAGNOSTIC STRIP TEST SCH ×4 (05:30→18:32)
[2022-04-08 05:49] LABS: BASOPHILS % 0.3 % (0.0-2.0); EOSINOPHILS % 3.7 % (0.0-5.0); HEMATOCRIT. 35.5 % (42.0-52.0); HEMOGLOBIN. 10.8 g/dL (14.0-18.0); LYMPHOCYTES % 12.7 % (20.0-50.0); MEAN CORPUSCULAR HEMOGLOBIN 24.5 pg (28.0-32.0); MEAN CORPUSCULAR VOLUME 80.7 fL (80.0-94.0); MEAN PLATELET VOLUME 9.1 fl (7.4-10.4); MONOCYTES % 8.8 % (2.0-8.0); NEUTROPHILS % 74.5 % (40.0-76.0); PLATELET 311 x1000/uL (130-400); RED CELL DISTRIBUTION WIDTH 15.7 % (11.6-14.6)
[2022-04-08] MEDS: ACETAMINOPHEN 650MG/20.3ML UDC PO PRN (05:56)
[2022-04-08 06:06] LABS: CHLORIDE 118 mEq/L (98-107); PHOSPHORUS 4.1 mg/dL (2.5-4.9)
[2022-04-08] MEDS: PANTOPRAZOLE SODIUM 40 MG/VIAL IV SCH (09:30)
[2022-04-08] MEDS: DOCUSATE SODIUM SUGAR FREE 100MG/10ML UDC NG SCH (09:30)
[2022-04-08] MEDS: ENOXAPARIN 30MG/0.3ML SYR SUBCUT SCH ×2 (09:31→21:14)
[2022-04-08] MEDS: DESMOPRESSIN ACETATE 0.1MG TABLET PO SCH ×2 (09:38→21:12)
[2022-04-08] MEDS: DEXTROSE 5% WATER 1,000 ML IV SCH (09:40)
[2022-04-08] MEDS: ASPIRIN 81MG TABLET PO SCH (09:41)
[2022-04-08] MEDS: DOXAZOSIN MESYLATE 2MG TABLET PO SCH ×2 (09:44→17:18)
[2022-04-08] MEDS: CARVEDILOL 6.25 MG TABLET PO SCH ×2 (09:44→21:13)
[2022-04-08] MEDS: AMLODIPINE 5MG TABLET PO SCH ×2 (09:45→21:13)
[2022-04-08 13:09] LABS: BG CARBOXYHEMOGLOBIN 0.6 % (0.5-1.5); BG DEOXYHEMOGLOBIN 3.7 % (0.0-5.0); BG FRACTION INSPIRED OXYGEN 40; BG HCO3 ACT 32.5 mmol/L (22.0-26.0); BG METHEMOGLOBIN 0.2 % (0.0-1.5); BG OXYGEN SATURATION 96.3 % (92.0-98.5); BG OXYHEMOGLOBIN 95.5 % (94.0-97.0); BG PCO2 61.6 mmHg (35.0-45.0); BG SAMPLE SITE RIGHT RADIAL; BG TOTAL HEMOGLOBIN 12.7 g/dL (12.0-18.0); BG VENT MODE VENT - CPAP
[2022-04-09] VITALS (40 sets, daily range): BP systolic 111–184; BP diastolic 58–121
[2022-04-09] MEDS: IPRATROPIUM/ALBUTEROL 0.5-3(2.5)MG/3ML NEB HHN SCH ×4 (00:32→20:48)
[2022-04-09] MEDS: DEXTROSE 5% WATER 1,000 ML IV SCH ×3 (05:06→21:40)
[2022-04-09] MEDS: MIDAZOLAM 100MG/100ML PREMIX IV PRN (05:08)
[2022-04-09] MEDS: MEROPENEM 1,000 MG in SODIUM CHLORIDE 0.9% 100 ML IV SCH ×3 (05:09→21:09)
[2022-04-09] MEDS: FENTANYL 2500MCG/250ML PMX 250 ML IV PRN (05:09)
[2022-04-09] MEDS: HYDRALAZINE HCL 50MG TABLET PO SCH ×3 (05:10→21:10)
[2022-04-09 05:37] LABS: BASOPHILS % 0.3 % (0.0-2.0); EOSINOPHILS % 4.8 % (0.0-5.0); HEMATOCRIT. 35.1 % (42.0-52.0); HEMOGLOBIN. 10.8 g/dL (14.0-18.0); MEAN CORPUSCULAR HEMOGLOBIN 24.9 pg (28.0-32.0); MEAN CORPUSCULAR VOLUME 80.5 fL (80.0-94.0); MEAN PLATELET VOLUME 9.2 fl (7.4-10.4); MONOCYTES % 7.5 % (2.0-8.0); NEUTROPHILS % 75.4 % (40.0-76.0); PLATELET 324 x1000/uL (130-400); RED BLOOD CELL COUNT 4.35 mill/uL (4.7-6.1); RED CELL DISTRIBUTION WIDTH 15.8 % (11.6-14.6)
[2022-04-09] MEDS: INSULIN LISPRO 100 UNITS/ML SUBCUT SCH ×4 (06:00→18:00)
[2022-04-09] MEDS: BLOOD SUGAR DIAGNOSTIC STRIP TEST SCH ×4 (06:00→17:50)
[2022-04-09 06:03] LABS: CHLORIDE 115 mEq/L (98-107)
[2022-04-09] MEDS: DOCUSATE SODIUM SUGAR FREE 100MG/10ML UDC NG SCH (09:00)
[2022-04-09] MEDS: PANTOPRAZOLE SODIUM 40 MG/VIAL IV SCH (09:00)
[2022-04-09] MEDS: DOXAZOSIN MESYLATE 2MG TABLET PO SCH ×2 (10:16→17:21)
[2022-04-09] MEDS: ASPIRIN 81MG TABLET PO SCH (10:16)
[2022-04-09] MEDS: AMLODIPINE 5MG TABLET PO SCH ×2 (10:16→21:10)
[2022-04-09] MEDS: ENOXAPARIN 30MG/0.3ML SYR SUBCUT SCH ×2 (10:17→21:08)
[2022-04-09] MEDS: CARVEDILOL 6.25 MG TABLET PO SCH ×2 (10:17→21:09)
[2022-04-09 13:03] LABS: BG BASE EXCESS 5.9 mmol/L (-2.0-2.0); BG CARBOXYHEMOGLOBIN 0.5 % (0.5-1.5); BG DEOXYHEMOGLOBIN 5.5 % (0.0-5.0); BG FRACTION INSPIRED OXYGEN 40; BG HCO3 ACT 31.6 mmol/L (22.0-26.0); BG METHEMOGLOBIN 0.2 % (0.0-1.5); BG OXYGEN SATURATION 94.5 % (92.0-98.5); BG OXYHEMOGLOBIN 93.8 % (94.0-97.0); BG PCO2 50.3 mmHg (35.0-45.0); BG PH 7.416 (7.350-7.450); BG PO2 70.9 mmHg (75.0-100.0); BG SAMPLE SITE RIGHT RADIAL; BG TOTAL HEMOGLOBIN 12.7 g/dL (12.0-18.0); BG VENT MODE VENT - CPAP
[2022-04-09] MEDS: HYDRALAZINE 20MG/ML VIAL IV PRN (21:22)
[2022-04-10] VITALS (13 sets, daily range): BP systolic 130–167; BP diastolic 83–106
[2022-04-10] MEDS: ACETAMINOPHEN 650MG/20.3ML UDC PO PRN (01:20)
[2022-04-10] MEDS: IPRATROPIUM/ALBUTEROL 0.5-3(2.5)MG/3ML NEB HHN SCH ×4 (01:42→21:30)
[2022-04-10] MEDS ORDERED: IOHEXOL-350 100 ML BOTTLE ONE (03:35)
[2022-04-10] MEDS: MEROPENEM 1,000 MG in SODIUM CHLORIDE 0.9% 100 ML IV SCH ×2 (05:03→15:25)
[2022-04-10] MEDS: HYDRALAZINE HCL 50MG TABLET PO SCH ×2 (05:03→15:25)
[2022-04-10 05:17] LABS: BASOPHILS % 0.3 % (0.0-2.0); EOSINOPHILS % 2.7 % (0.0-5.0); HEMATOCRIT. 36.7 % (42.0-52.0); HEMOGLOBIN. 11.5 g/dL (14.0-18.0); LYMPHOCYTES % 11.1 % (20.0-50.0); MEAN CORPUSCULAR HEMOGLOBIN 24.9 pg (28.0-32.0); MEAN CORPUSCULAR VOLUME 79.3 fL (80.0-94.0); MEAN PLATELET VOLUME 9.3 fl (7.4-10.4); MONOCYTES % 8.7 % (2.0-8.0); NEUTROPHILS % 77.2 % (40.0-76.0); PLATELET 356 x1000/uL (130-400); RED BLOOD CELL COUNT 4.63 mill/uL (4.7-6.1); RED CELL DISTRIBUTION WIDTH 15.9 % (11.6-14.6)
[2022-04-10 05:25] LABS: CHLORIDE 114 mEq/L (98-107)
[2022-04-10] MEDS: BLOOD SUGAR DIAGNOSTIC STRIP TEST SCH ×4 (05:31→17:30)
[2022-04-10] MEDS: INSULIN LISPRO 100 UNITS/ML SUBCUT SCH ×3 (05:31→12:00)
[2022-04-10 08:14] LABS: BG BASE EXCESS 4.3 mmol/L (-2.0-2.0); BG CARBOXYHEMOGLOBIN 0.5 % (0.5-1.5); BG DEOXYHEMOGLOBIN 3.4 % (0.0-5.0); BG HCO3 ACT 29.7 mmol/L (22.0-26.0); BG METHEMOGLOBIN 0.2 % (0.0-1.5); BG OXYGEN SATURATION 96.6 % (92.0-98.5); BG OXYHEMOGLOBIN 95.9 % (94.0-97.0); BG PCO2 47.7 mmHg (35.0-45.0); BG PH 7.412 (7.350-7.450); BG PO2 86.6 mmHg (75.0-100.0); BG SAMPLE SITE RIGHT RADIAL; BG TOTAL HEMOGLOBIN 12.8 g/dL (12.0-18.0); BG VENT MODE NASAL CANNULA
[2022-04-10] MEDS ORDERED: ASPIRIN 81MG TABLET PO SCH (09:00)
[2022-04-10] MEDS: AMLODIPINE 5MG TABLET PO SCH (09:11)
[2022-04-10] MEDS: CARVEDILOL 6.25 MG TABLET PO SCH (09:11)
[2022-04-10] MEDS: DOXAZOSIN MESYLATE 2MG TABLET PO SCH (09:12)
[2022-04-10] MEDS: ENOXAPARIN 30MG/0.3ML SYR SUBCUT SCH (09:12)
[2022-04-10] MEDS: DOCUSATE SODIUM SUGAR FREE 100MG/10ML UDC NG SCH (09:23)
[2022-04-10] MEDS: PANTOPRAZOLE SODIUM 40 MG/VIAL IV SCH (09:23)
[2022-04-10] MEDS ORDERED: CARVEDILOL 6.25 MG TABLET PO NR (13:39)
[2022-04-10] MEDS ORDERED: CARVEDILOL 12.5MG TABLET PO SCH (21:00)
== END 2022-04-10 22:41 | disposition left against medical advice (07) | DRG 720 ==
LOC: ER 19:41 → MICUSO 22:07 → 7WST 04-10 13:52
PROVIDERS: ADMIT Internal Medicine; ATTEND Internal Medicine
PROC: 5A1955Z Respiratory Ventilation, Greater than 96 Consecutive Hours (ICD-10-PCS; principal; 2022-03-31)
PROC: 0BH17EZ Insertion of Endotracheal Airway into Trachea, Via Natural or Artificial Opening (ICD-10-PCS; 2022-03-31)
PROC: 02HV33Z Insertion of Infusion Device into Superior Vena Cava, Percutaneous Approach (ICD-10-PCS; 2022-04-01)
PROC: B548ZZA Ultrasonography of Superior Vena Cava, Guidance (ICD-10-PCS; 2022-04-01)
DX: A41.3 Sepsis due to Hemophilus influenzae (principal); J96.02 Acute respiratory failure with hypercapnia; G93.40 Encephalopathy, unspecified; I50.23 Acute on chronic systolic (congestive) heart failure; J11.00 Influenza due to unidentified influenza virus with unspecified type of pneumonia; E87.0 Hyperosmolality and hypernatremia; I42.9 Cardiomyopathy, unspecified; I13.0 Hypertensive heart and chronic kidney disease with heart failure and stage 1 through stage 4 chronic kidney disease, or unspecified chronic kidney disease; L03.90 Cellulitis, unspecified; E11.22 Type 2 diabetes mellitus with diabetic chronic kidney disease; G81.94 Hemiplegia, unspecified affecting left nondominant side; N17.9 Acute kidney failure, unspecified; E66.01 Morbid (severe) obesity due to excess calories; E78.5 Hyperlipidemia, unspecified; I16.0 Hypertensive urgency; F15.10 Other stimulant abuse, uncomplicated; F16.10 Hallucinogen abuse, uncomplicated; R65.20 Severe sepsis without septic shock; N18.9 Chronic kidney disease, unspecified; Z20.822 Contact with and (suspected) exposure to COVID-19; M62.82 Rhabdomyolysis; E87.6 Hypokalemia; I25.2 Old myocardial infarction; Z78.1 Physical restraint status; Z79.82 Long term (current) use of aspirin; Z86.73 Personal history of transient ischemic attack (TIA), and cerebral infarction without residual deficits; Z91.14 Patient's other noncompliance with medication regimen; Z68.41 Body mass index [BMI] 40.0-44.9, adult
CPT/HCPCS: 31500; 36415; 36573; 36600; 70496; 70498; 70551; 71045; 76770; 78580; 80048; 80053; 80061; 80202; 80305; 80320; 81003; 82375; 82550; 82553; 82805; 82962; 83036; 83605; 83721; 83735; 83880; 83930; 84100; 84145; 84443; 84484; 85025; 86038; 86850; 86900; 87070; 87077; 87426; 92610; 93005; 93306; 93970; 94002; 94003; 94640; 99291; C1725; C9113; C9803; J0360; J1650; J1940; J1956; J2060; J2185; J2250; J2270; J2543; J3010; J3370; J3480; J3490; J7030; J7050; J7060; J7070; Q9967; A4315; G0480

== ENCOUNTER 2024-04-01 23:05 | Inpatient (IN) | payer OTHER ==
[~2024-04-01] VITALS: Ht 157.5 cm; Wt 98.0 kg
[~2024-04-01 23:05] MED LIST changes: -ETOMIDATE 2MG/ML 10ML VIAL IV ONE; -SODIUM CHLORIDE 0.9% 10ML VIAL ONE; -VECURONIUM BROMIDE 10 MG/VIAL IV ONE
[2024-04-01 23:28] LABS: BASOPHILS % 0.8 % (0.0-2.0); DIFFERENTIAL COMMENT 0; EOSINOPHILS % 1.4 % (0.0-5.0); HEMATOCRIT. 36.9 % (42.0-52.0); HEMOGLOBIN. 11.7 g/dL (14.0-18.0); MEAN CORPUSCULAR HEMOGLOBIN 24.4 pg (28.0-32.0); MEAN CORPUSCULAR HGB CONC 31.8 g/dL (31.0-37.0); MEAN CORPUSCULAR VOLUME 76.9 fL (80.0-94.0); MEAN PLATELET VOLUME 7.6 fl (7.4-10.4); MONOCYTES % 9.1 % (2.0-8.0); NEUTROPHILS % 74.7 % (40.0-76.0); PLATELET 306 x1000/uL (130-400); RED CELL DISTRIBUTION WIDTH 17.8 % (11.6-14.6); WHITE BLOOD COUNT 8.3 x1000/uL (4.5-11.0)
[2024-04-01 23:39] LABS: CHLORIDE 107 mEq/L (98-107); POTASSIUM 3.8 mEq/L (3.5-5.1); SODIUM 140 mEq/L (136-145)
[2024-04-01 23:40] LABS: CALCIUM 8.9 mg/dL (8.7-10.4); CARBON DIOXIDE 25 mEq/L (21-32)
[2024-04-01 23:45] LABS: CREATININE 1.4 mg/dL (0.6-1.3); GLUCOSE 128 mg/dL (70-105); UREA NITROGEN BLOOD 24 mg/dL (9-23)
[2024-04-01 23:47] LABS: ALANINE AMINOTRANSFERASE 36 IU/L (10-49); ALBUMIN 3.8 g/dL (3.2-4.8); ASPARTATE AMINOTRANSFERASE 26 IU/L (<34); PROTEIN TOTAL 6.5 g/dL (6.0-8.3)
[2024-04-02] VITALS (11 sets, daily range): BP systolic 151–187; BP diastolic 76–146; PULSE 76–94; RESP 19–31; TEMP 97.6–98.5
[2024-04-02 00:54] LABS: TROPONIN I HIGH SENSITIVITY 1472 ng/L (3.0-53)
[2024-04-02] MEDS: NITROGLYCERIN OINT 1GM/INCH UDPKT TD NR (01:09)
[2024-04-02] MEDS: ASPIRIN 325MG EC TABLET PO NR (01:09)
[2024-04-02] MEDS: FUROSEMIDE 40MG/4ML VIAL IV NR (01:09)
[2024-04-02 01:24] LABS: INR 1.3; PARTIAL THROMBOPLASTIN TIME 25.5 sec (23.4-31.0); PROTHROMBIN TIME 13.9 sec (9.6-11.0)
[2024-04-02] MEDS: HYDRALAZINE 20MG/ML VIAL IV ONE ×2 (03:15→05:06)
[2024-04-02 05:44] LABS: CLARITY URINE CLEAR (CLEAR); COLOR URINE YELLOW (YELLOW); GLUCOSE URINE NEGATIVE (NEGATIVE); KETONES URINE NEGATIVE (NEGATIVE); LEUKOCYTE ESTERASE URINE NEGATIVE (NEGATIVE); NITRITE URINE NEGATIVE (NEGATIVE); OCCULT BLOOD URINE NEGATIVE (NEGATIVE); PROTEIN URINE NEGATIVE (NEGATIVE); SPECIFIC GRAVITY URINE 1.003 (1.005-1.030); UROBILINOGEN URINE 0.2 E.U./dL (0.2-1.0)
[2024-04-02] MEDS ORDERED: HEPARIN BOLUS PRN aPTT <30 IV (05:45)
[2024-04-02] MEDS ORDERED: NICARDIPINE 40MG/200ML PREMIX 230 ML IV PRN (05:45)
[2024-04-02] MEDS ORDERED: HEPARIN 60 UNITS/KG BOLUS IV SCH (05:45)
[2024-04-02] MEDS ORDERED: HEPARIN BOLUS PRN aPTT 30-44 IV (05:45)
[2024-04-02] MEDS: HEPARIN 60 UNITS/KG BOLUS IV NR (05:47)
[2024-04-02] MEDS: HEPARIN 25,000 UNITS PREMIX 250 ML IV SCH (05:58)
[2024-04-02] MEDS: NICARDIPINE 40MG/200ML PREMIX 230 ML IV PRN (06:11)
[2024-04-02 09:26] LABS: BG BASE EXCESS 4.4 mmol/L (-2.0-2.0); BG CARBOXYHEMOGLOBIN 0.7 % (0.5-1.5); BG DEOXYHEMOGLOBIN 2.2 % (0.0-5.0); BG HCO3 ACT 29.1 mmol/L (22.0-26.0); BG METHEMOGLOBIN 0.7 % (0.0-1.5); BG OXYGEN SATURATION 97.8 % (92.0-98.5); BG OXYHEMOGLOBIN 96.4 % (94.0-97.0); BG PCO2 43.7 mmHg (35.0-45.0); BG PH 7.442 (7.350-7.450); BG PO2 105.4 mmHg (75.0-100.0); BG SAMPLE SITE RIGHT RADIAL; BG TOTAL HEMOGLOBIN 14.1 g/dL (12.0-18.0); BG VENT MODE MASK - BIPAP
[2024-04-02] MEDS: POTASSIUM CHLORIDE 20MEQ TABLET SR PO NR (09:49)
[2024-04-02] MEDS: FUROSEMIDE 40MG/4ML VIAL IVP NR (09:49)
[2024-04-02] MEDS ORDERED: ONDANSETRON HCL 4MG/2ML INJ IV PRN (12:15)
[2024-04-02] MEDS ORDERED: IPRATROPIUM/ALBUTEROL 0.5-3(2.5)MG/3ML NEB HHN PRN (12:15)
[2024-04-02] MEDS ORDERED: ACETAMINOPHEN 325MG TABLET PO PRN ×2 (12:15)
[2024-04-02] MEDS ORDERED: DEXTROSE 50% WATER 50ML SYRINGE IV PRN (12:15)
[2024-04-02] MEDS ORDERED: DOCUSATE SODIUM 100MG CAPSULE PO PRN (12:15)
[2024-04-02] MEDS: BLOOD SUGAR DIAGNOSTIC STRIP TEST SCH (12:34)
[2024-04-02] MEDS: CLONIDINE 0.1MG TABLET PO PRN (12:35)
[2024-04-02] MEDS: INSULIN LISPRO 100 UNITS/ML SUBCUT SCH (12:35)
[2024-04-02 13:34] LABS: BASOPHILS % 0.7 % (0.0-2.0); DIFFERENTIAL COMMENT 0; EOSINOPHILS % 1.7 % (0.0-5.0); HEMATOCRIT. 43.1 % (42.0-52.0); HEMOGLOBIN. 13.7 g/dL (14.0-18.0); LYMPHOCYTES % 9.3 % (20.0-50.0); MEAN CORPUSCULAR HEMOGLOBIN 24.4 pg (28.0-32.0); MEAN CORPUSCULAR HGB CONC 31.8 g/dL (31.0-37.0); MEAN CORPUSCULAR VOLUME 76.8 fL (80.0-94.0); MEAN PLATELET VOLUME 7.6 fl (7.4-10.4); MONOCYTES % 6.4 % (2.0-8.0); NEUTROPHILS % 81.9 % (40.0-76.0); PLATELET 323 x1000/uL (130-400); RED BLOOD CELL COUNT 5.62 mill/uL (4.7-6.1); RED CELL DISTRIBUTION WIDTH 18.1 % (11.6-14.6); WHITE BLOOD COUNT 8.5 x1000/uL (4.5-11.0)
[2024-04-02 13:45] LABS: CHLORIDE 104 mEq/L (98-107); POTASSIUM 3.2 mEq/L (3.5-5.1); SODIUM 144 mEq/L (136-145)
[2024-04-02 13:46] LABS: CALCIUM 9.5 mg/dL (8.7-10.4); CARBON DIOXIDE 33 mEq/L (21-32)
[2024-04-02 13:47] LABS: CLARITY URINE CLEAR (CLEAR); COLOR URINE YELLOW (YELLOW); GLUCOSE URINE NEGATIVE (NEGATIVE); KETONES URINE NEGATIVE (NEGATIVE); LEUKOCYTE ESTERASE URINE NEGATIVE (NEGATIVE); NITRITE URINE NEGATIVE (NEGATIVE); OCCULT BLOOD URINE NEGATIVE (NEGATIVE); PH URINE 7.5 (4.5-8.0); PROTEIN URINE NEGATIVE (NEGATIVE); SPECIFIC GRAVITY URINE 1.004 (1.005-1.030); UROBILINOGEN URINE 0.2 E.U./dL (0.2-1.0)
[2024-04-02 13:51] LABS: GLUCOSE 92 mg/dL (70-105); TRIGLYCERIDE 76 mg/dL (0-150); UREA NITROGEN BLOOD 15 mg/dL (9-23)
[2024-04-02 13:52] LABS: LDL CHOLESTEROL 94 mg/dL (5-100)
[2024-04-02 13:53] LABS: CHOLESTEROL 134 mg/dL (<200); HDL CHOLESTEROL 33 mg/dL (>55)
[2024-04-02] MEDS ORDERED: SPIR25TA6 MT (13:53)
[2024-04-02] MEDS ORDERED: NIFE-32 MT (13:53)
[2024-04-02] MEDS ORDERED: BUME1TAB8 MT (13:53)
[2024-04-02] MEDS ORDERED: CARV12.545 MT (13:53)
[2024-04-02] MEDS ORDERED: HYDR100T26 MT (13:53)
[2024-04-02 13:56] LABS: T4 FREE 1.48 ng/dL (0.89-1.76)
[2024-04-02] MEDS ORDERED: HYDRALAZINE HCL 25MG TABLET PO SCH (14:00)
[2024-04-02 14:09] LABS: HEPATITIS B SURFACE ANTIGEN NEGATIVE (Negative)
[2024-04-02] MEDS: HEPARIN BOLUS PRN aPTT <30 IV (14:22)
[2024-04-02 14:30] LABS: HEPATITIS C AB NON REACTIVE (Neg) (Negative)
[2024-04-02] MEDS: HYDRALAZINE HCL 100MG TABLET PO SCH (14:51)
[2024-04-02 14:53] LABS: *AMPHETAMINES SCREEN URINE NEGATIVE (NEGATIVE); *BARBITURATES SCREEN URINE NEGATIVE (NEGATIVE); *BENZODIAZEPINES SCREEN URINE NEGATIVE (NEGATIVE); *COCAINE SCREEN URINE NEGATIVE (NEGATIVE); CANNABINOID URINE SCREEN NEGATIVE (NEGATIVE); ECSTASY MDMA SCREEN URINE NEGATIVE (NEGATIVE); METHADONE URINE SCREEN NEGATIVE (NEGATIVE); OPIATES URINE SCREEN NEGATIVE (NEGATIVE); PHENCYCLIDINE URINE SCREEN NEGATIVE (NEGATIVE)
[2024-04-02 17:41] LABS: CREATINE KINASE MB FRACTION 7.5 ng/mL (0.5-3.6)
[2024-04-02] MEDS: FUROSEMIDE 40MG/4ML VIAL IVP SCH (17:48)
[2024-04-02] MEDS: HYDRALAZINE 20MG/ML VIAL IV NR (17:48)
[2024-04-02] MEDS: POTASSIUM CHLORIDE 20MEQ/PACKET PO NR (21:04)
[2024-04-02] MEDS: HEPARIN BOLUS PRN aPTT 30-44 IV (23:17)
[2024-04-03] VITALS (22 sets, daily range): BP systolic 97–204; BP diastolic 53–136; PULSE 68–97; RESP 13–33; TEMP 97.2–98.1
[2024-04-03 00:31] LABS: CREATINE KINASE MB FRACTION 6.9 ng/mL (0.5-3.6)
[2024-04-03] MEDS: HYDRALAZINE 20MG/ML VIAL IV PRN (07:02)
[2024-04-03 07:31] LABS: CHLORIDE 98 mEq/L (98-107); POTASSIUM 3.1 mEq/L (3.5-5.1); SODIUM 140 mEq/L (136-145)
[2024-04-03 07:32] LABS: CARBON DIOXIDE 35 mEq/L (21-32)
[2024-04-03 07:37] LABS: GLUCOSE 87 mg/dL (70-105); UREA NITROGEN BLOOD 17 mg/dL (9-23)
[2024-04-03 07:55] LABS: BASOPHILS % 0.7 % (0.0-2.0); DIFFERENTIAL COMMENT 0; EOSINOPHILS % 3.5 % (0.0-5.0); HEMATOCRIT. 39.9 % (42.0-52.0); HEMOGLOBIN. 12.9 g/dL (14.0-18.0); LYMPHOCYTES % 13.1 % (20.0-50.0); MEAN CORPUSCULAR HEMOGLOBIN 24.3 pg (28.0-32.0); MEAN CORPUSCULAR HGB CONC 32.2 g/dL (31.0-37.0); MEAN CORPUSCULAR VOLUME 75.6 fL (80.0-94.0); MEAN PLATELET VOLUME 8.3 fl (7.4-10.4); MONOCYTES % 10.9 % (2.0-8.0); NEUTROPHILS % 71.8 % (40.0-76.0); PLATELET 312 x1000/uL (130-400); RED BLOOD CELL COUNT 5.29 mill/uL (4.7-6.1); RED CELL DISTRIBUTION WIDTH 17.8 % (11.6-14.6); WHITE BLOOD COUNT 8.8 x1000/uL (4.5-11.0)
[2024-04-03] MEDS: ASPIRIN 81MG TABLET PO SCH (08:35)
[2024-04-03] MEDS: SPIRONOLACTONE 25MG TABLET PO SCH (08:36)
[2024-04-03] MEDS ORDERED: FUROSEMIDE 40MG/4ML VIAL IVP SCH (09:00)
[2024-04-03] MEDS: NIFEDIPINE XL 60MG TAB PO SCH (09:19)
[2024-04-03] MEDS: CARVEDILOL 12.5MG TABLET PO SCH (10:04)
[2024-04-03] MEDS: LOSARTAN 50 MG TABLET PO SCH (10:04)
[2024-04-03] MEDS: ISOSORBIDE DINITRATE 30MG TABLET PO SCH (13:00)
[2024-04-03 13:14] LABS: *AMPHETAMINES SCREEN URINE NEGATIVE (NEGATIVE)
[2024-04-03 13:15] LABS: *BARBITURATES SCREEN URINE NEGATIVE (NEGATIVE); *BENZODIAZEPINES SCREEN URINE NEGATIVE (NEGATIVE); *COCAINE SCREEN URINE NEGATIVE (NEGATIVE); CANNABINOID URINE SCREEN NEGATIVE (NEGATIVE); ECSTASY MDMA SCREEN URINE NEGATIVE (NEGATIVE); METHADONE URINE SCREEN NEGATIVE (NEGATIVE); OPIATES URINE SCREEN NEGATIVE (NEGATIVE); PHENCYCLIDINE URINE SCREEN NEGATIVE (NEGATIVE)
[2024-04-03] MEDS: POTASSIUM CHLORIDE 20MEQ TABLET SR PO SCH (18:30)
[2024-04-04] VITALS (13 sets, daily range): BP systolic 106–150; BP diastolic 39–138; PULSE 73–86; RESP 17–45; TEMP 97.5–98.8; O2SAT 99
[2024-04-04 07:41] LABS: CHLORIDE 96 mEq/L (98-107); POTASSIUM 3.2 mEq/L (3.5-5.1); SODIUM 138 mEq/L (136-145)
[2024-04-04 07:42] LABS: CALCIUM 8.8 mg/dL (8.7-10.4); CARBON DIOXIDE 34 mEq/L (21-32)
[2024-04-04 07:45] LABS: HEMATOCRIT 43.1 % (42.0-52.0); HEMOGLOBIN 13.7 g/dL (14.0-18.0); MEAN CORPUSCULAR HEMOGLOBIN 24.2 pg (28.0-32.0); MEAN CORPUSCULAR HGB CONC 31.7 g/dL (31.0-37.0); MEAN CORPUSCULAR VOLUME 76.3 fL (80.0-94.0); PLATELET 346 x1000/uL (130-400); RED BLOOD CELL COUNT 5.64 mill/uL (4.7-6.1); RED CELL DISTRIBUTION WIDTH 17.7 % (11.6-14.6); WHITE BLOOD COUNT 7.7 x1000/uL (4.5-11.0)
[2024-04-04 07:47] LABS: CREATININE 1.2 mg/dL (0.6-1.3); GLUCOSE 140 mg/dL (70-105); UREA NITROGEN BLOOD 14 mg/dL (9-23)
[2024-04-04] MEDS: SPIRONOLACTONE 50MG TABLET PO SCH (09:34)
[2024-04-04] MEDS ORDERED: LOSA100T33 MT (11:11)
[2024-04-04] MEDS ORDERED: CARV12.545 MT (11:11)
[2024-04-04] MEDS ORDERED: FURO80TA87 MT (11:11)
[2024-04-04] MEDS ORDERED: ASPI-1497 PO (11:11)
[2024-04-04] MEDS ORDERED: NIFE-32 MT (11:11)
[2024-04-04] MEDS ORDERED: POTA-205 MT (11:11)
== END 2024-04-04 16:30 | disposition home or self-care (01) | DRG 190 ==
LOC: ER 23:05 → EDBEDREQ 04-02 00:47 → EDBEDREQSVC 04-02 01:23 → EDBEDREQ 04-02 01:23 → EDBEDREQSVC 04-02 05:31 → 5EST 04-02 05:32 → EDBEDREQSVC 04-02 09:02
PROVIDERS: ADMIT Internal Medicine; ATTEND Internal Medicine
PROC: 5A09357 Assistance with Respiratory Ventilation, Less than 24 Consecutive Hours, Continuous Positive Airway Pressure (ICD-10-PCS; principal; 2024-04-02)
DX: I21.4 Non-ST elevation (NSTEMI) myocardial infarction (principal); J96.01 Acute respiratory failure with hypoxia; N17.0 Acute kidney failure with tubular necrosis; I13.0 Hypertensive heart and chronic kidney disease with heart failure and stage 1 through stage 4 chronic kidney disease, or unspecified chronic kidney disease; I50.23 Acute on chronic systolic (congestive) heart failure; Z20.822 Contact with and (suspected) exposure to COVID-19; I16.1 Hypertensive emergency; N18.2 Chronic kidney disease, stage 2 (mild); D64.9 Anemia, unspecified; E66.9 Obesity, unspecified; E78.00 Pure hypercholesterolemia, unspecified; F10.20 Alcohol dependence, uncomplicated; F19.10 Other psychoactive substance abuse, uncomplicated; F17.210 Nicotine dependence, cigarettes, uncomplicated; Z86.73 Personal history of transient ischemic attack (TIA), and cerebral infarction without residual deficits; Z91.148 Patient's other noncompliance with medication regimen for other reason; Z79.899 Other long term (current) drug therapy; Z68.39 Body mass index [BMI] 39.0-39.9, adult; Z82.49 Family history of ischemic heart disease and other diseases of the circulatory system
CPT/HCPCS: 36415; 36600; 71045; 76700; 80048; 80053; 80061; 80305; 81003; 82375; 82550; 82553; 82805; 82962; 83036; 83880; 84439; 84443; 84480; 84484; 85025; 85027; 85379; 86705; 87340; 87426; 93005; 93306; 93970; 94660; 99291; J0360; J1644; J1940